=== PATIENT | female | born 1980 | race Caucasian/White ===

== ENCOUNTER 2016-12-25 05:23 | Day surgery (SDC) | payer OTHER ==
[2016-12-25] VITALS (12 sets, daily range): BP systolic 101–120; BP diastolic 54–67; PULSE 52–66; RESP 15–25; Ht 167.6 cm; Wt 75.7 kg
[~2016-12-25] VITALS: Ht 167.6 cm; Wt 75.7 kg
--- NOTE | 2016-12-25 07:09 | PREOPHP ---
DATE OF ADMISSION: 12/25/2016 HISTORY OF PRESENT ILLNESS: This is a 36-year-old lady, 10, para 4, with 6 abortions. Her last normal menstrual period was a few days prior to admission. She was admitted for LEEP and D and C. She had an abnormal Pap smear before. The biopsy report showed CIN2. The procedures were explained to the procedure. She understood everything totally. The risks, benefits and alternatives were discussed with her as well. PAST PERSONAL HISTORY: No history of diabetes, TB, asthma. ALLERGIES: NO ALLERGIES. SOCIAL HISTORY: The patient does not smoke. She does not drink. She does not take any drugs except for control pills. 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 She is 10, para 4 with 4 normal deliveries. FAMILY HISTORY: Noncontributory. REVIEW OF SYSTEMS: CARDIOVASCULAR: No chest pain. RESPIRATORY: No cough. GASTROINTESTINAL: No diarrhea. No vomiting. GENITOURINARY: No dysuria. PHYSICAL EXAMINATION: GENERAL APPEARANCE: A conscious, coherent lady in no acute distress. VITAL SIGNS: Blood pressure 120/80. Pulse rate 80 per minute. Respirations 16 per minute. BREASTS: Within normal limits. HEART: Within normal limits. LUNGS: Within normal limits. ABDOMEN: Soft. No organomegaly. PELVIC: The cervix is firm. Uterus is normal size. Adnexa negative for masses. RECTAL: Confirmed the pelvic findings. EXTREMITIES: No pedal edema. ADMITTING DIAGNOSES: High-grade squamous intraepithelial lesion. Rule out invasive cancer. PLAN: The patient is planned to have a LEEP and D and C. The procedures were explained to the patient. She understood everything totally. The risks, benefits and alternatives were discussed with her as well. Dictated By: Aby Riggins MD /[email or web address]/[email or web address] /Document#: [id number] ; Copy to [facility]
[2016-12-25] MEDS ORDERED: DIPHENHYDRAMINE 50 MG INJ IV PRN (08:00)
[2016-12-25] MEDS ORDERED: FENTAnyl 50 MCG/ML VIAL IV PRN ×3 (08:00)
[2016-12-25] MEDS ORDERED: EPHEDrine SULFATE 50 MG/5 ML SYG IV PRN (08:00)
[2016-12-25] MEDS ORDERED: ONDANSETRON 4 MG INJ IV PRN (08:00)
[2016-12-25] MEDS ORDERED: OXYCODONE/ACETAMINOPHEN (5/325) TAB PO PRN ×2 (08:00)
[2016-12-25] MEDS ORDERED: hydrALAzine 20 MG INJ IV PRN (08:00)
[2016-12-25] MEDS ORDERED: LABETALOL HCL 20MG INJ IV PRN (08:00)
[2016-12-25] MEDS ORDERED: MEPERIDINE 25 MG INJ IV PRN (08:00)
[2016-12-25] MEDS ORDERED: ACETAMINOPHEN 325 MG TAB PO PRN (09:30)
--- NOTE | 2016-12-25 12:41 | OPR ---
DATE OF OPERATION: 12/25/2016 SURGEON: Aby Riggins MD. TAX ASSISTANT: Cr mulligan. PREOPERATIVE DIAGNOSIS: CIM II, per colposcopy directed biopsy. POSTOPERATIVE DIAGNOSIS: Pending pathology report. OPERATION PERFORMED: 1. LEEP procedure. 2. Dilatation and curettage. ANESTHESIA: General. OPERATIVE PROCEDURE: Under general anesthesia, the patient was prepped and draped in the usual fashion for vaginal surgery. Pelvic exam under anesthesia revealed the cervix to be firm. The uterus of normal size, and adnexa were negative for masses. Then, a heavy weighted vaginal retractor was put in place, and the anterior lip of the cervix was grasped with an Allis clamp. The whole cervix was painted with Lugol solution, as well as the vagina. The whole external os of the cervix did not take the Lugol solution, so then the loop was passed from left to right on the anterior lip of the cervix, and from left to right on the posterior lip of the cervix. A good amount of tissue was obtained. Another smaller loop was passed up to the endocervical canal. A small amount of tissue was obtained and the cervical curettage was done and a small amount of tissue was obtained. Endometrial curettage was done and a small amount of tissue was obtained. Then, the site of the biopsy was cauterized with a ball cautery, no bleeding was noted, after cauterization. A small piece of Surgicel was left at the site of the biopsy. The patient tolerated the procedure well. Estimated blood loss was minimal. Vital signs were stable during and after the procedure. Dictated By: Aby Riggins MD /[email or web address]-marie/eliza /Document#: [id number] CC: Aby Riggins MD;*[facility]*
[2016-12-26] MEDS ORDERED: ONDANSETRON 4 MG INJ ONE (18:01)
[2016-12-26] MEDS ORDERED: PROPOFOL 20 ML ONE (18:01)
[2016-12-26] MEDS ORDERED: STRONG IODINE 14 ML SOLUTION TOP ONE (18:01)
[2016-12-26] MEDS ORDERED: DEXAMETHASONE 4 MG/ML 1 ML INJ ONE (18:01)
[2016-12-26] MEDS ORDERED: FENTAnyl 50 MCG/ML VIAL ONE (18:01)
[2016-12-26] MEDS ORDERED: PROPOFOL 40 ML ONE (18:01)
== END 2016-12-25 09:20 | disposition home or self-care (01) ==
LOC: SDS 05:23
PROVIDERS: ATTEND Obstetrics & Gynecology
DX: N88.8 Other specified noninflammatory disorders of cervix uteri (principal)
CPT/HCPCS: 57522; 84702; 86850; 86900; 86901; 88305; Z7512; Z7610; J1100; J2405; J3010